=== PATIENT | female | born 1980 | race Caucasian/White ===

== ENCOUNTER 2017-12-31 11:19 | Day surgery (SDC) | END 2017-12-31 16:15 | disposition home or self-care (01) ==

== ENCOUNTER 2018-12-25 19:59 | Emergency (ER) | payer BC ==
[~2018-12-25] VITALS: Ht 162.6 cm; Wt 76.7 kg
[2018-12-25 20:01] VITALS: Ht 162.6 cm; Wt 76.7 kg
--- NOTE | 2018-12-25 21:46 | ERD ---
ER Documentation Chief Complaint Chief Complaint vaginal bleeding/pain today s/p hysterectomy 2 wks ago HPI This patient is a 38-year-old female who is about 2 weeks status post hysterectomy performed at an outside hospital. She is complaining of mild pelvic pain and vaginal bleeding that is moderate that began today. No dysuria hematuria frequency. No fever. No weakness or dizziness. ROS All systems reviewed and are negative except as per history of present illness. Allergies Allergies: Coded Allergies: No Known Allergy (Unverified , 12/31/17) PMhx/Soc History of Surgery: Yes (hysterectomy) Anesthesia Reaction: No Hx Neurological Disorder: No Hx Respiratory Disorders: No Hx Cardiac Disorders: No Hx Psychiatric Problems: No Hx Miscellaneous Medical Probl: No Hx Alcohol Use: No Hx Substance Use: No Hx Tobacco Use: No Smoking Status: Never smoker FmHx Family History: No diabetes Physical Exam Vitals Vital Signs Date Temp Pulse Resp B/P (MAP) Pulse Ox O2 O2 Flow FiO2 Time Delivery Rate 12/25/18 97.4 69 16 176/93 99 20:01 (120) Physical Exam INITIAL VITAL SIGNS: Reviewed by me GENERAL: Awake, alert and oriented x 4, well appearing, nontoxic, speaking in full sentences. No acute distress HEAD: Atraumatic NECK: Supple. No masses. Full range of motion. No meningismus. No midline tenderness. EYES: EOMI. PERRL. CV: Regular rate and rhythm. No murmurs, rubs, or gallops. ABDOMEN: Soft, non-distended. Nontender. Negative [place]. Negative McBurneys point tenderness. No CVA tenderness bilaterally. No guarding. No rebound. : Deffered. Result Diagram: 12/25/18214812/25/182148 Results 24 hrs Laboratory Tests Test 12/25/18 21:49 White Blood Count 7.1 10^3/ul Red Blood Count 4.20 10^6/ul Hemoglobin 13.2 g/dl Hematocrit 39.4 % Mean Corpuscular Volume 93.8 fl Mean Corpuscular Hemoglobin 31.4 pg Mean Corpuscular Hemoglobin Concent 33.5 g/dl Red Cell Distribution Width 11.9 % Platelet Count 358 10^3/UL Mean Platelet Volume 9.4 fl Immature Granulocytes % 0.300 % Neutrophils % 58.5 % Lymphocytes % 29.3 % Monocytes % 8.3 % Eosinophils % 2.8 % Basophils % 0.8 % Nucleated Red Blood Cells % 0.0 /100WBC Immature Granulocytes # 0.020 10^3/ul Neutrophils # 4.2 10^3/ul Lymphocytes # 2.1 10^3/ul Monocytes # 0.6 10^3/ul Eosinophils # 0.2 10^3/ul Basophils # 0.1 10^3/ul Nucleated Red Blood Cells # 0.0 10^3/ul Sodium Level 142 mmol/L Potassium Level 4.3 mmol/L Chloride Level 101 mmol/L Carbon Dioxide Level 31 mmol/L Anion Gap 10 Blood Urea Nitrogen 8 mg/dl Creatinine 0.54 mg/dl Est Glomerular Filtrat Rate mL/min > 60 mL/min Glucose Level 88 mg/dl Calcium Level 10.1 mg/dl Total Bilirubin 0.0 mg/dl Direct Bilirubin 0.00 mg/dl Indirect Bilirubin 0.0 mg/dl Aspartate Amino Transf (AST/SGOT) 30 IU/L Alanine Aminotransferase (ALT/SGPT) 28 IU/L Alkaline Phosphatase 66 IU/L Total Protein 7.7 g/dl Albumin 4.6 g/dl Globulin 3.10 g/dl Albumin/Globulin Ratio 1.48 Procedures/MDM Patient presents with vaginal bleeding status post hysterectomy that was done 2 weeks ago. She was fine up until about 5 PM today when she started bleeding. She has only mild pain and she declines any pain medication. CBC and chemistry panel ordered as well as urinalysis and urine test and pelvic ultrasound. Pelvic ultrasound was unremarkable. As is her blood work. She was given copies of both so she can follow-up with primary care which she states she would make an appointment tomorrow. Patient counseled regarding my diagnostic impression and care plan. Prior to discharge all questions answered. Pt agrees with treatment plan and understands strict return precautions. Pt is instructed to follow up with primary care provider within 24-48 hours. Precautionary instructions provided including instructions to return to the ER if not improving or for any worsening or changing symptoms or concerns. Departure Diagnosis: Primary Impression: Vaginal bleeding Condition: Stable BÁRBARA SMITH PA-C Dec 25, 2018 21:46
[2018-12-25 23:04] VITALS: BP 114/82; PULSE 67; RESP 18
== END 2018-12-25 23:05 | disposition home or self-care (01) ==
LOC: FTE 19:59
DX: N93.9 Abnormal uterine and vaginal bleeding, unspecified (principal); R10.2 Pelvic and perineal pain; Z90.710 Acquired absence of both cervix and uterus
CPT/HCPCS: 76856; 80053; 85025